=== PATIENT | male | born 1975 | race Two or more races ===

== ENCOUNTER 2023-10-14 12:22 | Emergency (ER) | payer MEDICAID, OTHER ==
[~2023-10-14] VITALS: Ht 185.4 cm; Wt 128.6 kg
[2023-10-14 14:47] VITALS: BP 147/90; PULSE 73; RESP 18; TEMP 97.7; O2SAT 98
[2023-10-14] MEDS ORDERED: IBUP-1456 PO (15:11)
== END 2023-10-14 15:19 | disposition home or self-care (01) ==
LOC: ER 12:22
DX: S83.92XA Sprain of unspecified site of left knee, initial encounter (principal); Z88.0 Allergy status to penicillin; X58.XXXA Exposure to other specified factors, initial encounter; Y93.79 Activity, other specified sports and athletics; Y92.89 Other specified places as the place of occurrence of the external cause; Y99.8 Other external cause status
CPT/HCPCS: 73562; 93971